=== PATIENT | female | born 1970 | race Caucasian/White ===

== ENCOUNTER 2021-05-18 11:45 | Emergency (ER) | payer BC, OTHER ==
[2021-05-18 11:51] VITALS: BP 134/81; PULSE 113; RESP 20; TEMP 97.7
[2021-05-18 12:55] LABS: Basophils % (A) 1 %; Eosinophils # (A) 0.1 k/uL (0-0.7); Eosinophils % (A) 2 %; HCT 42.2 % (34.0-46.0); HGB 14.8 gm/dL (11.4-16.0); Lymphocytes # (A) 1.6 k/uL (1.0-4.8); Lymphocytes % (A) 28 %; MCH 36.2 pg (25.0-35.0); MCHC 35.2 g/dL (31.0-37.0); MCV 102.8 fL (80.0-100.0); Mean Platelet Volume 7.6; Monocytes # (A) 0.4 k/uL (0-1.0); Monocytes % (A) 7 %; Neutrophils # (A) 3.5 k/uL (1.3-7.7); Neutrophils % (A) 61 %; Platelet Count 246 k/uL (150-450); RBC 4.11 m/uL (3.80-5.40); RDW 12.1 % (11.5-15.5); WBC 5.7 k/uL (3.8-10.6)
--- NOTE | 2021-05-18 12:56 | XR ---
EXAMINATION TYPE: XR KUB DATE OF EXAM: 05/18/2021 COMPARISON: NONE HISTORY: Pain TECHNIQUE: Single supine KUB image of the abdomen is obtained FINDINGS: Small bowel demonstrates no evidence for dilatation or air fluid levels. Gas and fecal material is seen in non-distended colon. No convincing evidence for pneumoperitoneum. No unusual calcifications. The lung bases are clear. The osseous structures are intact. IMPRESSION: 1. Overall nonobstructive bowel gas pattern.
[2021-05-18 13:08] LABS: ALT 250 U/L (4-34); AST 302 U/L (14-36); African American GFR (CKD) >90 (>60 ml/min/1.73 sqM); Albumin 4.4 g/dL (3.5-5.0); Alkaline Phosphatase 91 U/L (38-126); Anion Gap 16 mmol/L; Blood Urea Nitrogen 13 mg/dL (7-17); Calcium 8.9 mg/dL (8.4-10.2); Carbon Dioxide 21 mmol/L (22-30); Chloride 101 mmol/L (98-107); Glucose 78 mg/dL (74-99); Lipase 122 U/L (23-300); Non-African American GFR(CKD) >90 (>60 ml/min/1.73 sqM); Potassium 4.2 mmol/L (3.5-5.1); Sodium 138 mmol/L (137-145); Total Bilirubin 0.8 mg/dL (0.2-1.3); Total Protein 6.9 g/dL (6.3-8.2)
[2021-05-18 13:10] LABS: Appearance,Urine Cloudy (Clear); Bilirubin,Urine Negative (Negative); Blood,Urine Small (Negative); Color,Urine Yellow; Glucose,Urine (UA) Negative (Negative); Hyaline Casts,Urine 1 /lpf (0-2); Ketones,Urine 2+ (Negative); Leukocyte Esterase,Urine Trace (Negative); Mucus,Urine Many /hpf; Nitrite,Urine Negative (Negative); Protein,Urine 1+ (Negative); RBC,Urine 1 /hpf (0-5); Specific Gravity,Urine 1.026 (1.001-1.035); Squamous Epithelial Cell,Urine 14 /hpf (0-4); Urobilinogen,Urine <2.0 mg/dL (<2.0); WBC,Urine 6 /hpf (0-5)
--- NOTE | 2021-05-18 13:38 | CT ---
EXAMINATION TYPE: CT abdomen pelvis w con DATE OF EXAM: 05/18/2021 HISTORY: Constipation CT DLP: 938.8mGycm Automated Exposure Control for Dose Reduction was Utilized. CONTRAST: CT scan of the abdomen and pelvis is performed without oral but with IV Contrast, patient injected wi th 100 mL of Isovue 300. COMPARISON: None. FINDINGS: LUNG BASES: No significant abnormality is appreciated. LIVER/GB: Liver is mildly enlarged and markedly hypodense. No biliary dilatation. PANCREAS: No significant abnormality is seen. SPLEEN: No significant abnormality is seen. ADRENALS: No significant abnormality is seen. KIDNEYS: Symmetric excretion without hydronephrosis. Bladder filling with contrast. BOWEL: Suboptimal evaluation without enteric contrast. No suspicious small or large bowel dilatation is seen. Normal-appearing appendix from the cecum in the right pelvis. UTERUS/ADNEXA: Anteverted uterus. Scattered pelvic phleboliths are redemonstrated. There is 2.8 cm s uspected simple thin-walled cyst left adnexa axial image 70 LYMPH NODES: No greater than 1cm abdominal or pelvic lymph nodes are appreciated. OSSEOUS STRUCTURES: No significant abnormality is seen. OTHER: No significant additional abnormality is seen. IMPRESSION: No bowel obstruction. No significant colonic fecal stasis. Hepatomegaly with marked fatty infiltration of liver noted.
[2021-05-18] MEDS ORDERED: MAGNESIUM CITRATE 296 ML BOTTLE PO ONE (13:58)
--- NOTE | 2021-05-18 14:00 | ED ---
Abdominal Pain HPI - General Chief Complaint: Abdominal Pain Stated Complaint: Constipation Source: patient Mode of arrival: ambulatory Limitations: no limitations - History of Present Illness Initial Comments: 50-year-old female past medical history of asthma presents emergency department for constipation. Patient states that she has not had a bowel movement since Sunday. She describes the stool as small in caliber. Denies any black or bloody stools. She has attempted to take 2 fleets enemas, suppository and MiraLAX. States that she normally goes daily however has been unable to pass any stool. She continues to urinate without difficulty. No retention. No burning or frequency. She denies any vaginal bleeding or discharge. She has had a tubal ligation. She denies any back pain. No saddle anesthesia. She went to urgent care where an x-ray was performed. I did recommend that she come into the emergency room for further evaluation and CT. Patient denies any chest pain. No fevers, chills or cough. Admits to nausea without vomiting. No other alleviating, electrical intern modifying factors - Related Data Home Medications Medication Instructions Recorded Confirmed No Known Home Medications 05/18/21 05/18/21 Allergies Allergy/AdvReac Type Severity Reaction Status Date / Time No Known Allergies Allergy Verified 05/18/21 12:36 Review of Systems ROS Statement: Those systems with pertinent positive or pertinent negative responses have been documented in the HPI. ROS Other: All systems not noted in ROS Statement are negative. Past Medical History Past Medical History: Asthma History of Any Multi-Drug Resistant Organisms: None Reported Past Surgical History: Tubal Ligation Past Psychological History: No Psychological Hx Reported Smoking Status: Vaper Past Alcohol Use History: Occasional Past Drug Use History: Marijuana General Exam Limitations: no limitations Course Vital Signs 05/18/21 11:49 Temperature 97.7 F Pulse Rate 113 H Respiratory 20 Rate Blood Pressure 134/81 O2 Sat by Pulse 97 Oximetry Medical Decision Making - Medical Decision Making Upon arrival patient is placed into room 25. A thorough history and physical exam was performed. I did recommend a KUB however the patient reports that she had this done at the urgent care and they recommended a higher level of care as well as further imaging. I did perform an x-ray however IV was also established and laboratory studies were conducted. Patient does go for a CT of her abdomen and pelvis. I retrace studies are reviewed. Liver enzymes are elevated with an AST of 302 and an MALT of 250. Urinalysis is not a clean catch. I did review the patient's CT which demonstrates hepatomegaly. No bowel obstruction. No significant colonic fecal stasis. I discussed these results with the patient. Did recommend that she change her diet to foods less high in fat. I recommended no Tylenol intake. She denies taking Tylenol in excess at this time. Last dose was 2 days ago. I will provide the patient with a bottle of magnesium citrate as she is requesting a bowel movement. Instructed her to drink half the bottle. She does not have a bowel movement within 4 hours to drink the second half. She is to follow-up with her primary care doctor to have a repeat ultrasound of her liver performed as well as a repeat liver enzymes. If she has any new or worsening symptoms she should return to the emergency room. Patient agreed with treatment plan she was discharged home in stable condition - Lab Data Result diagrams: 05/18/21 12:42 05/18/21 12:42 Lab Results 05/18/21 05/18/21 05/18/21 Range/Units 12:42 12:42 12:43 WBC 5.7 (3.8-10.6) k/uL RBC 4.11 (3.80-5.40) m/uL Hgb 14.8 (11.4-16.0) gm/dL Hct 42.2 (34.0-46.0) % MCV 102.8 H (80.0-100.0) fL MCH 36.2 H (25.0-35.0) pg MCHC 35.2 (31.0-37.0) g/dL RDW 12.1 (11.5-15.5) % Plt Count 246 (150-450) k/uL MPV 7.6 Neutrophils % 61 % Lymphocytes % 28 % Monocytes % 7 % Eosinophils % 2 % Basophils % 1 % Neutrophils # 3.5 (1.3-7.7) k/uL Lymphocytes # 1.6 (1.0-4.8) k/uL Monocytes # 0.4 (0-1.0) k/uL Eosinophils # 0.1 (0-0.7) k/uL Basophils # 0.0 (0-0.2) k/uL Sodium 138 (137-145) mmol/L Potassium 4.2 (3.5-5.1) mmol/L Chloride 101 (98-107) mmol/L Carbon Dioxide 21 L (22-30) mmol/L Anion Gap 16 mmol/L BUN 13 (7-17) mg/dL Creatinine 0.63 (0.52-1.04) mg/dL Est GFR (CKD-EPI)AfAm >90 (>60 ml/min/1.73 sqM) Est GFR (CKD-EPI)NonAf >90 (>60 ml/min/1.73 sqM) Glucose 78 (74-99) mg/dL Calcium 8.9 (8.4-10.2) mg/dL Total Bilirubin 0.8 (0.2-1.3) mg/dL AST 302 H (14-36) U/L ALT 250 H (4-34) U/L Alkaline Phosphatase 91 (38-126) U/L Total Protein 6.9 (6.3-8.2) g/dL Albumin 4.4 (3.5-5.0) g/dL Lipase 122 (23-300) U/L Urine Color Yellow Urine Appearance Cloudy H (Clear) Urine pH 6.0 (5.0-8.0) Ur Specific [place] 1.026 (1.001-1.035) Urine Protein 1+ H (Negative) Urine Glucose (UA) Negative (Negative) Urine Ketones 2+ H (Negative) Urine Blood Small H (Negative) Urine Nitrite Negative (Negative) Urine Bilirubin Negative (Negative) Urine Urobilinogen <2.0 (<2.0) mg/dL Ur Leukocyte Esterase Trace H (Negative) Urine RBC 1 (0-5) /hpf Urine WBC 6 H (0-5) /hpf Ur Squamous Epith Cells 14 H (0-4) /hpf Hyaline Casts 1 (0-2) /lpf Urine Mucus Many H (None) /hpf Disposition Clinical Impression: Abdominal pain, Elevated liver enzymes, Alcohol use, Hepatomegaly Disposition: HOME SELF-CARE Condition: Stable Instructions (If sedation given, give patient instructions): Abdominal Pain (ED) Additional Instructions: I recommend you stop taking tylenol and drinking alcohol. Modify your diet to eat more vegetables and less fattening foods. Drink half of the magnesium citrate. If you do not have a bowel movement within 4 hours, drink the second half. Follow-up with your primary care doctor and have repeat liver enzymes completed. Return for any new or worsening symptoms Is patient prescribed a controlled substance at d/c from ED?: No Referrals: None,Stated [Primary Care Provider] - 1-2 days [facility] [NON-STAFF] - 1-2 days Time of Disposition: 14:00
== END 2021-05-18 14:34 | disposition home or self-care (01) ==
LOC: EC 11:45
DX: R10.9 Unspecified abdominal pain (principal); R16.0 Hepatomegaly, not elsewhere classified; R74.8 Abnormal levels of other serum enzymes; Z72.89 Other problems related to lifestyle; J45.909 Unspecified asthma, uncomplicated; F12.90 Cannabis use, unspecified, uncomplicated; F17.290 Nicotine dependence, other tobacco product, uncomplicated
CPT/HCPCS: 36415; 80053; 83690; 85025; 81001; 74018; 74177; 99284; Q9967

== ENCOUNTER → 2024-09-23 | Outpatient (CLI) | payer OTHER ==
--- NOTE | 2024-09-23 08:07 | US ---
EXAMINATION TYPE: US liver DATE OF EXAM: 09/23/2024 COMPARISON: CT 2021, [place] 2011 CLINICAL INDICATION: Female, 53 years old with history of K76.0 HEPATIC STEATOSIS F10.11 HX ALCOHOL A BUSE; Hepatic steatosis, history of alcohol abuse TECHNIQUE: Grayscale and color Doppler imaging of the right upper quadrant. FINDINGS: EXAM MEASUREMENTS: Liver Length: 18.0 cm Gallbladder Wall: 0.23 cm CBD: 0.58 cm, color Doppler imaging was utilized to isolate the common bile duct for measurement. Right Kidney: 11.3 x 5.8 x 4.1 cm SUPPORT COORDINATOR NOTES: *Exam is limited due to gas. Pancreas: *Very limited visibility. Most of the pancreas was obscured Liver: Enlarged. Increased echogenicity with attenuation. Gallbladder: Measures upper limits versus minimally enlarged measuring 10.0 cm in length. Appears anechoic. Evidence for sonographic Thomas's sign: No CBD: Measures upper limits. Right Kidney: No hydronephrosis or masses seen IMPRESSION: 1. Hepatomegaly with mild fatty infiltration liver. [facility], , 09/23/2024 8:04 AM
== END | disposition home or self-care (01) ==
LOC: RADUSWWP 07:21
PROVIDERS: ATTEND Internal Medicine
DX: K76.0 Fatty (change of) liver, not elsewhere classified (principal); F10.11 Alcohol abuse, in remission; R16.0 Hepatomegaly, not elsewhere classified
CPT/HCPCS: 76705